=== PATIENT | male | born 1950 ===

== ENCOUNTER 2017-11-13 17:00 | Emergency (ER) | payer MEDICARE ==
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
[2017-11-13 23:00] VITALS: BP 117/89
== END 2017-11-13 22:35 | disposition short-term general hospital (02) ==
LOC: ED 17:00
DX: T14.91XA Suicide attempt, initial encounter (principal); X78.9XXA Intentional self-harm by unspecified sharp object, initial encounter; Y93.9 Activity, unspecified; Y92.89 Other specified places as the place of occurrence of the external cause; Y99.9 Unspecified external cause status; F32.9 Major depressive disorder, single episode, unspecified; Z59.0 Homelessness
CPT/HCPCS: 99284